=== PATIENT | female | born 1990 | race Caucasian/White ===

== ENCOUNTER → 2017-07-17 | Outpatient (CLI) | payer OTHER ==
[~2017-07-17] MED LIST: ALPR-1 PO; BACL-1 PO; CEF300 PO; CHOL200074 PO; CLIN300C99 PO; DOCU-442 PO; DUL20 PO; DULO30CA35 PO; ESCI10TA8 PO; HYDR2TAB74 PO; LOR5/325 PO; LORA-1456 PO; NITR-105 PO; ONDA4TAB PO; ONDA4TAB97 PO; OXYC-865 PO; PER PO; POTA20TA94 PO; PROM-110 PO; SERT20OR6 PO; SULF-198 PO; TRAZ-156 PO; VORI200T PO
--- NOTE | 2017-07-17 17:45 | RADIOLOGY IMAGING REPORT ---
FACILITY: [facility] PATIENT NAME: Vanessa Hinton : 1990 MR: [id number] V: [id number] EXAM DATE: ORDERING PHYSICIAN: SUE KHAN TECHNOLOGIST: Location: [facility] - [place] Patient: Vanessa Hinton : 1990 Visit/Account:[id number] Date of Sevice: 07/17/2017 Exam type: FOOT 3 VIEW RIGHT History: Neuropathic ulcer on right foot, patient has spina bifida Comparison: July 27, 2016. Findings: Again noted is soft tissue swelling just lateral to the right fifth metatarsophalangeal joint. There is an adjacent ulceration along the plantar surface. The findings are similar to the prior study. No underlying bony erosion is seen to suggest osteomyelitis. IMPRESSION: 1. Soft tissue swelling with ulceration along the plantar surface of the right foot adjacent to the right fifth MTP joint appears some are to the prior study. No underlying bony erosion is identified Report Dictated By: Jacki Verde MD at 07/17/2017 5:37 PM Report E-Signed By: Jacki Verde MD at 07/17/2017 5:40 PM WSN:[email or web address]
== END ==
LOC: RAD 15:00
PROVIDERS: ATTEND Surgery
DX: L97.518 Non-pressure chronic ulcer of other part of right foot with other specified severity (principal)

== ENCOUNTER 2017-10-10 11:15 | Outpatient (RCR) | payer OTHER ==
--- NOTE | 2017-08-24 16:22 | PT INITIAL EVALUATION ---
MEDICAL DIAGNOSIS: Neuropathic Ulcer TREATMENT DIAGNOSIS: Neuropathic Ulcer of the plantar surface of R) foot, near the 5th MT head DATE OF ONSET: 07/27/17 (most recent onset) SUBJECTIVE: This is the third time that this patient has been seen for outpatient wound care. She reports that she presented to Dr. Hart about 1 month ago ( July 2017) and was referred to PT wound care for debridement. Pt reports she had a previous wound in this area from a surgical procedure in 2009. fall she was hiking and developed an open sore in this area. Visited emergency room on 07/27/16 due to increase pain, swelling, redness and fever in R foot. Pt initiated wound care for this beginning in Jul 2016. During first 3 month certification period pt missed 4 visits and attended 12 and was then re-certed for an additional 3 month period, as wound was gradually improving. Pt was not compliant with obtaining cast shoe with off- loading insole and declined any shoe modification to off-load wound further. Pt did attempt to alter the amount of time spent in weight bearing on the wound site. Re-eval was completed on 11/09/16 and pt subsequently missed 2 visits over the span of 5 weeks, returning for her next visit on 12/19/16. Pt was instructed to increase frequency to once weekly again, due to decline in wound bed, but then missed the next 3 weeks, for a total of 5 missed visits and attended 2 during the second certification period. On 01/09/17 pt was discharged from customer management specialist wound care due to non-compliance and was instructed to follow up with Dr. Hart for further wound care and consult as needed. Per pt report, she was then seen by Dr. Hart in early Feb 2017 and then again for a follow up in early March 2017. The patient was seen for PT wound care from 03/20/17-04/28/17 with improved compliance with attending wound care visits, but the patient never obtained recommended and appropriate foot wear. The patient was discharged with a nearly fully epithelialized ulcer. Pt presents today with gauze taped over the wound and slipper type shoes in place. She reports that the wound has grown increasing amounts of calloused skin with mild bleeding in the mornings. This morning the callous completely came off in the shower to reveal an underlying wound bed with increased odor reported. REHAB PROBLEM LIST: Open wound of R) plantar foot PREVIOUS MEDICAL HISTORY: Spina Bifida, previous wounds in same area, see EMR for details OCCUPATION: Student, Tester Operator OBJECTIVE: Sensation: Absent sensation of the R) foot Wound Measurements: 0.5 cm L x 0.5 cm W x 0.3 cm D ASSESSMENT: Pt presents today in slipper-type shoes with wound present on the plantar surface of the R) foot, near the 5th metatarsal head. This is the same location of all previous wounds, as there is likely increased pressure d/t the anatomical alignment of the 5th MT. Extensive callous present of the periwound skin. PT completed conservative, selective debridement of non-viable tissue and slough, as well as periwound callous in order to bevel wound edges down to the margins of the wound. The wound base measures 0.5cm L x 0.5cm W x 0.3 cm D with dusky red coloration present. PT cleansed the wound with sterile saline and then gently packed it with calcium alginate with silver. This was followed by an absorptive layer cut to offload the area, as well as a secondary low profile absorptive pad. The 5th MTP was taped to facilitate flexion and decrease pressure to the area. The patient was informed that an learning manager will likely be consulted in order to obtain proper shoes/orthotic to assist with wound healing and prevent further breakdown, the patient was agreeable to this plan. The patient's significant other will change dressing if it becomes saturated. Pt will f/u on 08/29/17. Short Term Goals 1: Pt to maintain clean, dry and intact dressings between wound care visits. 2: Wound to demonstrate 100% granulation tissue with no s/s of infection 3: Wound to gradually epithelialize from from the edges inward and demonstrate 100% closure 4: Pt to obtain proper orthotic/shoe to facilitate wound healing and prevent further skin breakdown. Patient's Goals: Wound healing PLAN: Patient to be seen for skilled PT wound care to include sharps debridement as well as advanced wound care product selection and application to facilitate wound healing 1x/Week for up to 90 days. Thank you for this referral. If you have any questions, comments, or concerns about this report or plan, please contact me at . Malini Lovett, PT, DPT MTDD
[~2017-10-10 11:15] MED LIST changes: +SERT-173 PO; -SERT20OR6 PO
--- NOTE | 2017-10-10 17:12 | PT PLAN OF CARE ---
Physician: Dr. Hart Patient is being seen: Vanessa Hinton Therapist: Marleny Simmons, PT, MPT Medical Diagnosis: Neuropathic Ulcer Treatment Diagnosis: Neuropathic Ulcer of the plantar surface of R) foot, near the 5th MT head Date of Onset: 07/27/17 Date of Initial Evaluation: 08/24/17 Date patient was last seen: 10/10/17 Number of treatments: 8 Number of cancellations/No shows: 0 INTERVENTIONS: Sharps debridement as well as advanced wound care product selection and application to facilitate wound healing. GOALS: 1: Pt to maintain clean, dry and intact dressings between wound care visits. - Met 2: Wound to demonstrate 100% granulation tissue with no s/s of infection - Met 3: Wound to gradually epithelialize from from the edges inward and demonstrate 100% closure - Met 4: Pt to obtain proper orthotic/shoe to facilitate wound healing and prevent further skin breakdown. - Pt declines other footwear PATIENT'S GOAL: Wound healing Status of Patient's Goals: Met Patient Compliance: Adequate; pt unwilling to change footwear and follow up with supervisor chassis assembly for further options currently. Prognosis: Fair Reasons for continuing therapy: None at this time; wound no longer has drainage and center of wound appears healed currently. Callous continues to be a problem, and pt encouraged to soak in epsom salt and use vasaline to soften this area regularly. Increased extension of R) 5th toe continues to contribute to pressure from internal source. When pt tapes 5th toe into a more neutral alignment, there appears to be less pressure at MTP joint and allows for faster wound healing. If wound continues to exacerbate and open, pt may need to consider and more definitive treatment to avoid this internal pressure. Pt has been encouraged to follow up with PCP and Dr. Hart regarding other long-term treatment options. Thank you for this referral. If you have any questions, comments, or concerns about this report or plan, please contact me at . Marleny Simmons, PT, MPT [facility]
== END 2017-10-10 14:03 | disposition home or self-care (01) ==
LOC: PT 11:15
PROVIDERS: ATTEND Surgery
DX: L97.511 Non-pressure chronic ulcer of other part of right foot limited to breakdown of skin (principal); Q05.9 Spina bifida, unspecified
CPT/HCPCS: 97161

== ENCOUNTER → 2017-11-10 | Outpatient (CLI) | payer OTHER ==
[2017-11-10 08:49] LABS: PLATELET COUNT, AUTOMATED 250 K/uL (150-450)
== END ==
LOC: LAB 08:19
PROVIDERS: ATTEND Internal Medicine
DX: R50.9 Fever, unspecified (principal); R10.9 Unspecified abdominal pain; L65.9 Nonscarring hair loss, unspecified; B96.20 Unspecified Escherichia coli [E. coli] as the cause of diseases classified elsewhere; B96.89 Other specified bacterial agents as the cause of diseases classified elsewhere
CPT/HCPCS: 36415; 81001; 82040; 82247; 82310; 82374; 82435; 82565; 82947; 84075; 84132; 84155; 84295; 84403; 84436; 84443; 84450; 84460; 84481; 84520; 85025; 87077; 87088; 87186

== ENCOUNTER 2018-01-25 05:26 | Emergency (ER) | payer OTHER ==
[~2018-01-25 05:26] MED LIST changes: -TRAZ-156 PO; +TRAZ50TA34 PO
--- NOTE | 2018-01-25 05:54 | ER Report ---
History and Physical Time Seen By MD: 05:54 Hx. of Stated Complaint: PT HAS HAD ABDOMINAL PAIN ON AND OFF FOR A WEEK, THEN AOUND 3AM SHE STARTED HAVING INTENSE LOWER LEFT ABDOMINAL PAIN. PT ALSO FEELS NAUSEOUS (DEIRDRE MEDINA MD) Time Seen By MD: 07:57 (ELOISA RAYGOZA DO) HPI/ROS CHIEF COMPLAINT: left lower abdominal pain HISTORY OF PRESENT ILLNESS: This is a 27 year old female. She has a history of REVIEW OF SYSTEMS: Constitutional: [No fever or chills.] Eyes: [No discharge.] [No vision changes.] ENT: [No sore throat.] [No congestion.] [No hearing changes.] Cardiovascular: [No chest pain.] [No palpitations.] Respiratory: [No cough.] [No shortness of breath.] Gastrointestinal: [No abdominal pain.] [No nausea or vomiting.] [No change in bowel movements.] [No blood in the stool or melena.] Genitourinary: [No dysuria.] [No hematuria.] [No frequency] Musculoskeletal: [No back pain.] [No extremity pain.] Skin: [No rashes.] [No bruising.] Neurological: [No numbness.] [No weakness.] [No headache.] (DEIRDRE MEDINA MD) HPI/ROS Please see Dr. Medina's note (ELOISA RAYGOZA DO) Allergies: Coded Allergies: clavulanic acid (Verified Allergy, Severe, confusion, disorientation, 11/09) duloxetine (Verified Allergy, Severe, serotonin syndrome, 11/09/17) vancomycin (Verified Allergy, Severe, hives, 11/09/17) levofloxacin (Verified Allergy, Intermediate, nauseated, 11/09/17) Home Meds No Active Prescriptions or Reported Meds Past Medical/Surgical History Spina bifida, history of neurogenic colon with stoma placed in the right colon. Intermittent self catheter because of neurogenic bladder. Endometriosis. Musculoskeletal atrophy due to spina bifida. History of appendectomy. History of cyst ovary, history of 2 spinal cord releases, history of osteomyelitis in foot with shaving of the bone (DEIRDRE MEDINA MD) Reviewed Nurses Notes: Yes (DEIRDRE MEDINA MD) Hx Smoking: Yes Smoking Status: Current: Every Day Smoker Exposure to Second Hand Smoke?: No Hx Substance Use Disorder: No Hx Alcohol Use: No (DEIRDRE MEDINA MD) Constitutional Vital Sign - Last 24 Hours 01/25/18 01/25/18 01/25/18 01/25/18 05:26 05:31 05:33 05:41 Temp 97.7 Pulse ??? 73 65 Resp 16 B/P (MAP) 118/86 118/86 (97) Pulse Ox 97 94 O2 Delivery Room Air 01/25/18 01/25/18 01/25/18 01/25/18 05:45 05:56 06:00 06:11 Pulse 81 63 B/P (MAP) 110/73 (85) 117/95 (102) Pulse Ox 93 01/25/18 01/25/18 01/25/18 06:15 06:26 06:30 Pulse 58 B/P (MAP) 114/73 (87) 110/75 (87) Pulse Ox 94 (ELOISA RAYGOZA DO) Physical Exam General Appearance: The patient is alert. Mild acute distress due to nausea and pain. Non-toxic in appearance. Eyes: Pupils are equal, round. Reactive to light. No pallor, injection or icterus. Extraocular movements are intact. ENT: Mucous membranes are moist. Normal oral mucosa. Posterior oropharynx is normal. Respiratory: Lungs are clear to auscultation. Cardiovascular: Regular rate and rhythm. No murmurs, gallops or rubs. Normal capillary refill. Gastrointestinal: Abdomen is soft, tenderness mainly left lower abdomen as well as left lower back. Nondistended. Has guarding and a slight rebound. No costovertebral angle tenderness with percussion. Neurological: Alert and oriented x3. Skin: Warm and dry. No rashes. DIFFERENTIAL DIAGNOSIS: After history and physical exam, differential diagnosis was considered for abdominal pain in a female including but not limited to ovarian cyst, ovarian torsion, urinary tract infection, and colitis or other inflammatory process (DEIRDRE MEDINA MD) Physical Exam Please see Dr. Medina note (ELOISA RAYGOZA DO) Medical Decision Making Data Points Result Diagram: 01/25/18 0545 01/25/18 0545 Laboratory Hematology Test 01/25/18 05:30 01/25/18 05:45 Urine Color Yellow Urine Clarity Clear Urine pH 5.0 pH (4.8-9.5) Urine Specific [place] 1.016 Urine Protein Negative mg/dL (NEGATIVE) Urine Glucose (UA) Negative mg/dL (NEGATIVE) Urine Ketones Negative mg/dL (NEGATIVE) Urine Blood Negative (NEGATIVE) Urine Nitrite Negative (NEGATIVE) Urine Bilirubin Negative (NEGATIVE) Urine Urobilinogen Negative mg/dL (0.2-1.9) Urine Leukocyte Esterase Negative (NEGATIVE) Urine RBC <1 /HPF (0-2/HPF) Urine WBC 3 /HPF (0-5/HPF) Urine Squamous Epithelial Cells Many /LPF (NONE-FEW) Urine Transitional Epithelial Cells Few /LPF (NONE-FEW) Urine Bacteria Few /HPF (NONE-FEW) Urine Mucus Few /HPF (NONE-FEW) Red Blood Count 4.69 M/uL (4.17-5.56) Mean Corpuscular Volume 89.9 fL (80.0-96.0) Mean Corpuscular Hemoglobin 31.5 pg (26.0-33.0) Mean Corpuscular Hemoglobin Concent 35.0 g/dL (32.0-36.0) Red Cell Distribution Width 12.5 % (11.5-14.5) Mean Platelet Volume 10.1 fL (7.2-11.1) Neutrophils (%) (Auto) 54.3 % (39.4-72.5) Lymphocytes (%) (Auto) 30.8 % (17.6-49.6) Monocytes (%) (Auto) 8.0 % (4.1-12.4) Eosinophils (%) (Auto) 6.3 % (0.4-6.7) Basophils (%) (Auto) 0.6 % (0.3-1.4) Nucleated RBC Relative Count (auto) 0.2 /100WBC Neutrophils # (Auto) 3.2 K/uL (2.0-7.4) Lymphocytes # (Auto) 1.8 K/uL (1.3-3.6) Monocytes # (Auto) 0.5 K/uL (0.3-1.0) Eosinophils # (Auto) 0.4 K/uL (0.0-0.5) Basophils # (Auto) 0.0 K/uL (0.0-0.1) Nucleated RBC Absolute Count (auto) 0.01 K/uL Erythrocyte Sedimentation Rate 4 mm/HOUR (0-20) Sodium Level 139 mmol/L (137-145) Potassium Level 3.7 mmol/L (3.5-5.0) Chloride Level 102 mmol/L (98-107) Carbon Dioxide Level 25 mmol/L (22-31) Blood Urea Nitrogen 15 mg/dl (7-18) Creatinine 0.70 mg/dl (0.52-1.04) Glomerular Filtration Rate Calc > 60.0 Random Glucose 97 mg/dl (75-110) Calcium Level 9.3 mg/dl (8.4-10.2) Total Bilirubin 1.2 mg/dl (0.2-1.3) Aspartate Amino Transf (AST/SGOT) 27 U/L (0-35) Alanine Aminotransferase (ALT/SGPT) 25 U/L (0-56) Alkaline Phosphatase 62 U/L (0-126) C-Reactive Protein 0.5 mg/dl (<1.0) Total Protein 7.7 g/dl (6.3-8.2) Albumin 4.6 g/dl (3.5-5.0) Human Chorionic Gonadotropin, Qual Negative (NEGATIVE) Chemistry Test 01/25/18 05:30 01/25/18 05:45 Urine Color Yellow Urine Clarity Clear Urine pH 5.0 pH (4.8-9.5) Urine Specific Aurora 1.016 Urine Protein Negative mg/dL (NEGATIVE) Urine Glucose (UA) Negative mg/dL (NEGATIVE) Urine Ketones Negative mg/dL (NEGATIVE) Urine Blood Negative (NEGATIVE) Urine Nitrite Negative (NEGATIVE) Urine Bilirubin Negative (NEGATIVE) Urine Urobilinogen Negative mg/dL (0.2-1.9) Urine Leukocyte Esterase Negative (NEGATIVE) Urine RBC <1 /HPF (0-2/HPF) Urine WBC 3 /HPF (0-5/HPF) Urine Squamous Epithelial Cells Many /LPF (NONE-FEW) Urine Transitional Epithelial Cells Few /LPF (NONE-FEW) Urine Bacteria Few /HPF (NONE-FEW) Urine Mucus Few /HPF (NONE-FEW) White Blood Count 5.8 k/uL (4.5-11.0) Red Blood Count 4.69 M/uL (4.17-5.56) Hemoglobin 14.7 g/dL (12.0-16.0) Hematocrit 42.1 % (34.0-47.0) Mean Corpuscular Volume 89.9 fL (80.0-96.0) Mean Corpuscular Hemoglobin 31.5 pg (26.0-33.0) Mean Corpuscular Hemoglobin Concent 35.0 g/dL (32.0-36.0) Red Cell Distribution Width 12.5 % (11.5-14.5) Platelet Count 226 K/uL (150-450) Mean Platelet Volume 10.1 fL (7.2-11.1) Neutrophils (%) (Auto) 54.3 % (39.4-72.5) Lymphocytes (%) (Auto) 30.8 % (17.6-49.6) Monocytes (%) (Auto) 8.0 % (4.1-12.4) Eosinophils (%) (Auto) 6.3 % (0.4-6.7) Basophils (%) (Auto) 0.6 % (0.3-1.4) Nucleated RBC Relative Count (auto) 0.2 /100WBC Neutrophils # (Auto) 3.2 K/uL (2.0-7.4) Lymphocytes # (Auto) 1.8 K/uL (1.3-3.6) Monocytes # (Auto) 0.5 K/uL (0.3-1.0) Eosinophils # (Auto) 0.4 K/uL (0.0-0.5) Basophils # (Auto) 0.0 K/uL (0.0-0.1) Nucleated RBC Absolute Count (auto) 0.01 K/uL Erythrocyte Sedimentation Rate 4 mm/HOUR (0-20) Glomerular Filtration Rate Calc > 60.0 Calcium Level 9.3 mg/dl (8.4-10.2) Total Bilirubin 1.2 mg/dl (0.2-1.3) Aspartate Amino Transf (AST/SGOT) 27 U/L (0-35) Alanine Aminotransferase (ALT/SGPT) 25 U/L (0-56) Alkaline Phosphatase 62 U/L (0-126) C-Reactive Protein 0.5 mg/dl (<1.0) Total Protein 7.7 g/dl (6.3-8.2) Albumin 4.6 g/dl (3.5-5.0) Human Chorionic Gonadotropin, Qual Negative (NEGATIVE) Urinalysis Test 01/25/18 05:30 Urine Color Yellow Urine Clarity Clear Urine pH 5.0 pH (4.8-9.5) Urine Specific Aurora 1.016 Urine Protein Negative mg/dL (NEGATIVE) Urine Glucose (UA) Negative mg/dL (NEGATIVE) Urine Ketones Negative mg/dL (NEGATIVE) Urine Blood Negative (NEGATIVE) Urine Nitrite Negative (NEGATIVE) Urine Bilirubin Negative (NEGATIVE) Urine Urobilinogen Negative mg/dL (0.2-1.9) Urine Leukocyte Esterase Negative (NEGATIVE) Urine RBC <1 /HPF (0-2/HPF) Urine WBC 3 /HPF (0-5/HPF) Urine Squamous Epithelial Cells Many /LPF (NONE-FEW) Urine Transitional Epithelial Cells Few /LPF (NONE-FEW) Urine Bacteria Few /HPF (NONE-FEW) Urine Mucus Few /HPF (NONE-FEW) (ELOISA RAYGOZA DO) ED Course/Re-evaluation Clinical Indication for ER IV: Hydration, IV Access (DEIRDRE MEDINA MD) ED Course I took over care of the patient from Dr. Medina. Imaging results from transvaginal ultrasound and CT of the abdomen and pelvis came back showing no left-sided abdominal causes for her pain. Labs were unremarkable showing no leukocytosis. CT of the abdomen and pelvis were equivocal showing inflammatory changes of the bowel distal to the colostomy site. Inflammatory changes were present in the right side of the abdomen. Patient was hemodynamically stable and afebrile throughout course in the emergency department. I discussed the findings with the patient and she voiced understanding. Patient was advised to follow up closely with Dr. Truong who is her surgeon and she agreed to follow- up in the next couple days. Patient agreed to return promptly if her symptoms worsened or failed to improve. Decision to Disposition Date: Jan 25, 2018 Decision to Disposition Time: 07:59 (ELOISA RAYGOZA DO) Depart Departure Latest Vital Signs Vital Signs Date Time Temp Pulse Resp B/P (MAP) Pulse Ox O2 Delivery O2 Flow Rate FiO2 01/25/18 06:30 110/75 (87) 01/25/18 06:26 58 94 01/25/18 05:31 97.7 16 Room Air (ELOISA RAYGOZA DO) Impression: Primary Impression: Abdominal pain Condition: Improved Disposition: HOME OR SELF-CARE New Scripts No Active Prescriptions or Reported Meds Patient Instructions: Abdominal Pain (ED) Additional Instructions: Please follow-up with Gen. surgery in the next couple days. Please drink plenty of water. Please return promptly if you develop worsening abdominal pain, fevers , chills, decreased ostomy output. DEIRDRE MEDINA MD Jan 25, 2018 05:54 ELOISA RAYGOZA DO Jan 25, 2018 08:00
[2018-01-25] MEDS ORDERED: ONDANSETRON 4 MG/2 ML VIAL IVP ONE (05:55)
[2018-01-25] MEDS ORDERED: NS(*) 0.9% 1000 ML BAG 1,000 ML IV ONE (06:05)
[2018-01-25] MEDS ORDERED: KETOROLAC 30 MG/ML VIAL IVP ONE (06:05)
[2018-01-25] MEDS ORDERED: IOPAMIDOL 76% 75 ML INFUS BTL 75 ML ONE (06:23)
[2018-01-25 06:39] LABS: PLATELET COUNT, AUTOMATED 226 K/uL (150-450)
--- NOTE | 2018-01-25 07:40 | RADIOLOGY IMAGING REPORT ---
FACILITY: [facility] PATIENT NAME: Vanessa Hinton : 1990 MR: [id number] V: [id number] EXAM DATE: ORDERING PHYSICIAN: DEIRDRE BELTRAN TECHNOLOGIST: Location: [facility] [place] Patient: Vanessa Hinton : 1990 Visit/Account:[id number] Date of Sevice: 01/25/2018 CT of the abdomen and pelvis with contrast: Indication: Left lower quadrant pain. Technique: Helical CT was performed through the abdomen and pelvis following IV contrast enhancement with 75 cc of [id number]-[id number]. Multiplanar reconstructions are reviewed. One of the following dose optimization techniques was utilized in the performance of this exam: Autom ated exposure control; adjustment of the mA and/or kV according to the patient's size; or use of an i terative reconstruction technique. Specific details can be referenced in the facility's radiology CT exam operational policy. Comparison: 04/08/2017 Lower lung ribeiro: No parenchymal or pleural abnormality is identified. Liver: Normal in size, shape, and density. There is uniform enhancement of the venous structures. Gallbladder/biliary tree: The gallbladder appears contracted, but otherwise unremarkable. The bile du cts are not dilated. Pancreas: Normal in size, shape, and density. Spleen: Normal in size, shape, and density. Adrenal glands: Normal limits. Kidneys/urinary bladder: The kidneys are normal in size, shape, and a few tiny cortical cysts are pre sent. There are no signs of urinary tract calculus or obstruction. The urinary bladder appears homoge neous and unremarkable. Intestinal structures: The colostomy site in the right lower abdominal wall appears unremarkable and unchanged. There are no signs of obstruction or inflammatory changes around the ostomy site. However, in the right midabdomen, there is an abnormal segment of bowel, which appears contiguous wit h the transverse colon distal to the ostomy. There is marked thickening of the wall of this structure , compatible with inflammatory changes. The distal transverse colon, descending colon, sigmoid colon and rectum are all relatively collapsed. The small bowel loops are unremarkable, as visualized. There are no signs of small bowel obstruction. Pelvis: The uterus and adnexal structures are unremarkable and unchanged. There are no signs of infla mmation or fluid in the pelvis. Aorta and vascular structures: Within normal limits. Ascites or fluid collections: None seen. Skeletal structures: Intact and unremarkable. Impression: In the right midabdomen, there is an abnormal segment of bowel, which appears contiguous with the transverse colon. There is marked thickening of the bowel wall, compatible with inflammatory changes. Further clinical correlation is needed. Report Dictated By: Aris Barrett MD at 01/25/2018 7:17 AM Report E-Signed By: Aris Barrett MD at 01/25/2018 7:37 AM WSN:[id number]
--- NOTE | 2018-01-25 07:41 | RADIOLOGY IMAGING REPORT ---
FACILITY: [facility] - [place] PATIENT NAME: Vanessa Hinton : 1990 MR: [id number] V: [id number] EXAM DATE: ORDERING PHYSICIAN: DEIRDRE BELTRAN TECHNOLOGIST: Location: [facility] - [place] Patient: Vanessa Hinton : 1990 Visit/Account:[id number] Date of Sevice: 01/25/2018 Transvaginal pelvic ultrasound INDICATION: Left lower abdominal pain COMPARISON: CT examination from today FINDINGS: Uterus measures 6.7 x 3.0 x 4.5 cm. Simple appearing nabothian cysts are noted in the cervix. Double wall endometrial stripe measures 6.0 mm and has a normal appearance There is no free fluid in the cul-de-sac. Urinary bladder is empty. Pelvic vessels appear unremarkable on this examination. Right ovary measures 3.7 x 3.3 x 2.0 cm and shows normal blood flow and contains several small follic les. There is a more focal 7 x 5 x 7 mm circular echogenic follicle which is most consistent with a h emorrhagic follicle. Left ovary measures 3.2 x 2.1 x 1.8 cm and shows normal blood flow and contains several small follicl es. IMPRESSION: 1. No evidence of acute pelvic pathology. No finding to explain the patient's left lower abdominal pa in Report Dictated By: Erasmo Urban MD at 01/25/2018 7:34 AM Report E-Signed By: Erasmo Urban MD at 01/25/2018 7:37 AM WSN:[id number]
[2018-01-25 08:00] VITALS: BP 107/69
== END 2018-01-25 08:07 | disposition home or self-care (01) ==
LOC: ER 05:34
DX: R10.32 Left lower quadrant pain (principal)
CPT/HCPCS: 74177; 76830; 81001; 84703; 85025; 85651; 86140; 96361; 96374; 96375; 99284; J1885; J2405; J7030; Q9967; 82040; 82247; 82310; 82374; 82435; 82565; 82947; 84075; 84132; 84155; 84295; 84450; 84460; 84520

== ENCOUNTER 2018-04-02 22:35 | Emergency (ER) | payer OTHER ==
--- NOTE | 2018-04-02 22:40 | ER Report ---
History and Physical Time Seen By MD: 22:40 HPI/ROS CHIEF COMPLAINT: History of ostomy, right lower quadrant abdominal pain HISTORY OF PRESENT ILLNESS: 27-year-old female with a history of ostomy. Patient notes onset of abdominal pain over the last several hours. She describes severe cramping 9/10 pain in her lower abdomen. Patient denies fever, chills or dysuria. Patient denies nausea or vomiting. Patient states this is similar to previous episode she had nearly one year ago. REVIEW OF SYSTEMS: Respiratory: No cough, no dyspnea. Cardiovascular: No chest pain, no palpitations. Gastrointestinal: As above Musculoskeletal: No back pain. Allergies: Coded Allergies: clavulanic acid (Verified Allergy, Severe, confusion, disorientation, 04/02/18) duloxetine (Verified Allergy, Severe, serotonin syndrome, 04/02/18) vancomycin (Verified Allergy, Severe, hives, 04/02/18) levofloxacin (Verified Allergy, Intermediate, nauseated, 04/02/18) Home Meds Active Scripts Ondansetron (ZOFRAN ODT) 4 Mg Tab.rapdis, 4 MG PO every 6 hours PRN for PAIN, #10 TAB TAKE 1 TABLET BY MOUTH EVERY 12 HOURS Prov:BHUPENDRA IRVERA DO 04/03/18 Alprazolam 0.25 Mg Tab (XANAX 0.25 MG TAB) 0.25 Mg Tablet, 0.5-1 TAB PO BID PRN for panic attack, #30 TAB 0 Refills Prov:STEPHANIE VALLADARES MD 02/22/18 Reviewed Nurses Notes: Yes Old Medical Records Reviewed: Yes Hx Smoking: Yes Smoking Status: Former Smoker Exposure to Second Hand Smoke?: No Hx Substance Use Disorder: No Hx Alcohol Use: No Constitutional Vital Sign - Last 24 Hours 04/02/18 04/02/18 04/02/18 04/02/18 22:39 22:41 23:00 23:05 Temp 97.5 Pulse 78 93 Resp 14 B/P (MAP) 126/82 126/82 (97) 109/87 (94) Pulse Ox 96 98 O2 Delivery Room Air 04/02/18 04/02/18 04/02/18 04/03/18 23:27 23:30 23:35 00:00 Pulse 71 B/P (MAP) 108/72 (84) 107/70 (82) 103/63 (76) Pulse Ox 97 04/03/18 04/03/18 00:05 00:13 Pulse 64 Pulse Ox 93 96 Intake and Output 04/02/18 04/02/18 04/03/18 15:00 23:00 07:00 Intake Total 1000 ml Balance 1000 ml Physical Exam General Appearance: The patient is alert, has no immediate need for airway protection and no current signs of toxicity. Vital signs stable, afebrile, pulse ox normal, slightly pale appearing, skin warm and dry Eyes: Pupils equal and round no injection. Respiratory: Chest is non tender, lungs are clear to auscultation. Cardiac: regular rate and rhythm Gastrointestinal: Abdomen is soft. There is firmness in the right lower quadrant near the ostomy. There is fluid draining from the ostomy., no masses, bowel sounds normal. Musculoskeletal: Neck: Neck is supple and non tender. No lymphadenopathy Extremities have full range of motion and are non tender. Skin: No rashes or lesions. DIFFERENTIAL DIAGNOSIS: After history and physical exam differential diagnosis was considered for abdominal pain including but not limited to appendicitis, cholecystitis, gastritis, constipation, obstipation, colic and urinary tract infection. Medical Decision Making Data Points Result Diagram: 04/02/185 04/02/18 2255 Laboratory Hematology Test 04/02/18 22:40 04/02/18 22:55 Urine Color Yellow Urine Clarity Cloudy Urine pH 6.0 pH (4.8-9.5) Urine Specific [place] 1.020 Urine Protein Negative mg/dL (NEGATIVE) Urine Glucose (UA) Negative mg/dL (NEGATIVE) Urine Ketones Negative mg/dL (NEGATIVE) Urine Blood Negative (NEGATIVE) Urine Nitrite Negative (NEGATIVE) Urine Bilirubin Negative (NEGATIVE) Urine Urobilinogen Negative mg/dL (0.2-1.9) Urine Leukocyte Esterase Negative (NEGATIVE) Urine RBC <1 /HPF (0-2/HPF) Urine WBC 6 /HPF (0-5/HPF) Urine Squamous Epithelial Cells Many /LPF (NONE-FEW) Urine Transitional Epithelial Cells Few /LPF (NONE-FEW) Urine Amorphous Crystals Few /HPF Urine Bacteria Few /HPF (NONE-FEW) Urine Mucus None /HPF (NONE-FEW) Red Blood Count 4.92 M/uL (4.17-5.56) Mean Corpuscular Volume 91.5 fL (80.0-96.0) Mean Corpuscular Hemoglobin 31.5 pg (26.0-33.0) Mean Corpuscular Hemoglobin Concent 34.4 g/dL (32.0-36.0) Red Cell Distribution Width 13.2 % (11.5-14.5) Mean Platelet Volume 9.8 fL (7.2-11.1) Neutrophils (%) (Auto) 55.8 % (39.4-72.5) Lymphocytes (%) (Auto) 33.4 % (17.6-49.6) Monocytes (%) (Auto) 7.5 % (4.1-12.4) Eosinophils (%) (Auto) 2.6 % (0.4-6.7) Basophils (%) (Auto) 0.7 % (0.3-1.4) Nucleated RBC Relative Count (auto) 0.1 /100WBC Neutrophils # (Auto) 5.2 K/uL (2.0-7.4) Lymphocytes # (Auto) 3.1 K/uL (1.3-3.6) Monocytes # (Auto) 0.7 K/uL (0.3-1.0) Eosinophils # (Auto) 0.2 K/uL (0.0-0.5) Basophils # (Auto) 0.1 K/uL (0.0-0.1) Nucleated RBC Absolute Count (auto) 0.01 K/uL Sodium Level 139 mmol/L (137-145) Potassium Level 3.7 mmol/L (3.5-5.0) Chloride Level 99 mmol/L (98-107) Carbon Dioxide Level 30 mmol/L (22-31) Blood Urea Nitrogen 21 mg/dl (7-18) Creatinine 0.90 mg/dl (0.52-1.04) Glomerular Filtration Rate Calc > 60.0 Random Glucose 88 mg/dl (75-110) Calcium Level 9.8 mg/dl (8.4-10.2) Total Bilirubin 1.0 mg/dl (0.2-1.3) Aspartate Amino Transf (AST/SGOT) 35 U/L (0-35) Alanine Aminotransferase (ALT/SGPT) 43 U/L (0-56) Alkaline Phosphatase 96 U/L (0-126) Total Protein 8.0 g/dl (6.3-8.2) Albumin 4.6 g/dl (3.5-5.0) Amylase Level 104 U/L (0-110) Lipase 117 U/L (23-300) Human Chorionic Gonadotropin, Qual Negative (NEGATIVE) Chemistry Test 04/02/18 22:40 04/02/18 22:55 Urine Color Yellow Urine Clarity Cloudy Urine pH 6.0 pH (4.8-9.5) Urine Specific [place] 1.020 Urine Protein Negative mg/dL (NEGATIVE) Urine Glucose (UA) Negative mg/dL (NEGATIVE) Urine Ketones Negative mg/dL (NEGATIVE) Urine Blood Negative (NEGATIVE) Urine Nitrite Negative (NEGATIVE) Urine Bilirubin Negative (NEGATIVE) Urine Urobilinogen Negative mg/dL (0.2-1.9) Urine Leukocyte Esterase Negative (NEGATIVE) Urine RBC <1 /HPF (0-2/HPF) Urine WBC 6 /HPF (0-5/HPF) Urine Squamous Epithelial Cells Many /LPF (NONE-FEW) Urine Transitional Epithelial Cells Few /LPF (NONE-FEW) Urine Amorphous Crystals Few /HPF Urine Bacteria Few /HPF (NONE-FEW) Urine Mucus None /HPF (NONE-FEW) White Blood Count 9.3 k/uL (4.5-11.0) Red Blood Count 4.92 M/uL (4.17-5.56) Hemoglobin 15.5 g/dL (12.0-16.0) Hematocrit 45.0 % (34.0-47.0) Mean Corpuscular Volume 91.5 fL (80.0-96.0) Mean Corpuscular Hemoglobin 31.5 pg (26.0-33.0) Mean Corpuscular Hemoglobin Concent 34.4 g/dL (32.0-36.0) Red Cell Distribution Width 13.2 % (11.5-14.5) Platelet Count 275 K/uL (150-450) Mean Platelet Volume 9.8 fL (7.2-11.1) Neutrophils (%) (Auto) 55.8 % (39.4-72.5) Lymphocytes (%) (Auto) 33.4 % (17.6-49.6) Monocytes (%) (Auto) 7.5 % (4.1-12.4) Eosinophils (%) (Auto) 2.6 % (0.4-6.7) Basophils (%) (Auto) 0.7 % (0.3-1.4) Nucleated RBC Relative Count (auto) 0.1 /100WBC Neutrophils # (Auto) 5.2 K/uL (2.0-7.4) Lymphocytes # (Auto) 3.1 K/uL (1.3-3.6) Monocytes # (Auto) 0.7 K/uL (0.3-1.0) Eosinophils # (Auto) 0.2 K/uL (0.0-0.5) Basophils # (Auto) 0.1 K/uL (0.0-0.1) Nucleated RBC Absolute Count (auto) 0.01 K/uL Glomerular Filtration Rate Calc > 60.0 Calcium Level 9.8 mg/dl (8.4-10.2) Total Bilirubin 1.0 mg/dl (0.2-1.3) Aspartate Amino Transf (AST/SGOT) 35 U/L (0-35) Alanine Aminotransferase (ALT/SGPT) 43 U/L (0-56) Alkaline Phosphatase 96 U/L (0-126) Total Protein 8.0 g/dl (6.3-8.2) Albumin 4.6 g/dl (3.5-5.0) Amylase Level 104 U/L (0-110) Lipase 117 U/L (23-300) Human Chorionic Gonadotropin, Qual Negative (NEGATIVE) Urinalysis Test 04/02/18 22:40 Urine Color Yellow Urine Clarity Cloudy Urine pH 6.0 pH (4.8-9.5) Urine Specific [place] 1.020 Urine Protein Negative mg/dL (NEGATIVE) Urine Glucose (UA) Negative mg/dL (NEGATIVE) Urine Ketones Negative mg/dL (NEGATIVE) Urine Blood Negative (NEGATIVE) Urine Nitrite Negative (NEGATIVE) Urine Bilirubin Negative (NEGATIVE) Urine Urobilinogen Negative mg/dL (0.2-1.9) Urine Leukocyte Esterase Negative (NEGATIVE) Urine RBC <1 /HPF (0-2/HPF) Urine WBC 6 /HPF (0-5/HPF) Urine Squamous Epithelial Cells Many /LPF (NONE-FEW) Urine Transitional Epithelial Cells Few /LPF (NONE-FEW) Urine Amorphous Crystals Few /HPF Urine Bacteria Few /HPF (NONE-FEW) Urine Mucus None /HPF (NONE-FEW) EKG/Imaging Imaging X-ray: Three-way abdomen was obtained. I viewed the images myself on the PACS system. My interpretation of the images is: Chest x-ray is clear lung ribeiro, no free air under the diaphragm. Two-way of the abdomen shows nonspecific bowel gas pattern without obstruction. There is fecal stasis in the right colon. Comparison to previous 3-way from one year ago shows similar pattern.. The radiologist interpretation had no clinically significant variation from this interpretation. ED Course/Re-evaluation Clinical Indication for ER IV: Hydration, IV Access ED Course Patient was admitted to an examination room. H&P was done. The differential diagnosis was considered. On clinical examination. Patient has benign nonsurgical abdomen. Her diagnostic studies are unremarkable. Her 3 way of her abdomen shows findings consistent with obstipation or constipation of her right colon. X-rays are similar to previously one year ago. Patient was actually admitted at that time after a CT scan showed significant fecal stasis and patient required enemas and MiraLAX from above to unclog her obstipation. I di scussed that option of admission with the patient for treatment as previous. Patient elected tried at home with MiraLAX. She is advised clear liquid diet for 48-72 hours. She is advised to take MiraLAX at least 3 times a day and drink plenty of fluids. She is advised to follow-up with Dr. Truong her surgeon. Decision to Disposition Date: Apr 03, 2018 Decision to Disposition Time: 00:11 Depart Departure Latest Vital Signs Vital Signs Date Time Temp Pulse Resp B/P (MAP) Pulse Ox O2 Delivery O2 Flow Rate FiO2 04/03/18 00:13 96 04/03/18 00:05 64 04/03/18 00:00 103/63 (76) 04/02/18 22:39 97.5 14 Room Air Impression: Primary Impression: Constipation Additional Impression: Complication of ostomy Condition: Improved Disposition: HOME OR SELF-CARE Referrals: MICHELLE DICKERSON MD (PCP) New Scripts Ondansetron (ZOFRAN ODT) 4 Mg Tab.rapdis 4 MG PO every 6 hours PRN for PAIN, #10 TAB TAKE 1 TABLET BY MOUTH EVERY 12 HOURS Prov: BHUPENDRA RIVERA DO 04/03/18 Patient Instructions: Clear Liquid Diet (ED), Constipation (ED) Additional Instructions: Take MiraLAX 3 times daily Follow clear liquid diet for 48-72 hours and to your ostomy evacuates Follow-up with Dr. Truong if unimproved Problem Qualifiers Primary Impression: Constipation Constipation type: unspecified constipation type Qualified Codes: K59.00 - Constipation, unspecified BHUPENDRA RIVERA DO Apr 02, 2018 22:40
[2018-04-02] MEDS ORDERED: NS(*) 0.9% 1000 ML BAG 1,000 ML IV ONE (22:49)
[2018-04-02] MEDS ORDERED: ONDANSETRON 4 MG/2 ML VIAL IVP ONE (22:50)
[2018-04-02] MEDS: fentaNYL CITR 100 MCG/2 ML AMP IVP ONE (23:00)
[2018-04-02 23:02] LABS: PLATELET COUNT, AUTOMATED 275 K/uL (150-450)
--- NOTE | 2018-04-02 23:51 | RADIOLOGY IMAGING REPORT ---
FAC[place] [facility] [place]IENT NAME: Vanessa Hinton : 1990 MR: [id number] V: [id number] EXAM DATE: ORDERING PHYSICIAN: BHUPENDRA RIVERA TECHNOLOGIST: Location: [facility] [place] Patient: Vanessa Hinton : 1990 Visit/Account:[id number] Date of Sevice: 04/02/2018 OBSTRUCTION SERIES: Indication: Abdominal pain. Technique: Supine and erect views of the abdomen and a frontal view of the chest were obtained. Comparison: 04/08/2017 Findings: The intestinal gas pattern is unremarkable. There is no evidence of obstruction, dilatation , or free air. The skeletal structures are unchanged. 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 The chest film demonstrates well-expanded and clear lungs. The heart and mediastinal contours are wit hin normal limits. IMPRESSION: No evidence of obstruction or other acute process. Report Dictated By: Aris Barrett MD at 04/02/2018 11:45 PM Report E-Signed By: Aris Barrett MD at 04/02/2018 11:47 PM WSN:[id number]
[2018-04-03] VITALS: BP 103/63
[2018-04-03] MEDS ORDERED: ONDA4TAB PO (00:12)
[2018-04-03] MEDS ORDERED: ONDANSETRON 4 MG ODT TH SL ONE (00:15)
[2018-04-03] MEDS ORDERED: ACET/HYDROC 5/325MG TH ER ONLY 2 TAB/BOTTLE PO ONE (00:15)
== END 2018-04-03 00:28 | disposition home or self-care (01) ==
LOC: ER 22:51
DX: K59.00 Constipation, unspecified (principal); K94.09 Other complications of colostomy
CPT/HCPCS: 74022; 81001; 82150; 83690; 84703; 85025; 96361; 96374; 96375; 99284; J2405; J3010; J7030; S0119; 82040; 82247; 82310; 82374; 82435; 82565; 82947; 84075; 84132; 84155; 84295; 84450; 84460; 84520

== ENCOUNTER → 2018-09-24 | Outpatient (CLI) | payer OTHER ==
[~2018-09-24] MED LIST changes: +AMOX500T10 PO
== END ==
LOC: LAB 15:07
PROVIDERS: ATTEND Surgery
DX: D22.5 Melanocytic nevi of trunk (principal)
CPT/HCPCS: 88305